=== PATIENT | female | born 1985 | race Caucasian/White ===

== ENCOUNTER 2020-03-09 01:09 | Outpatient (CLI) | payer OTHER, SELFPAY ==
[2020-03-09 18:21] LABS: SARS-CoV-2 RNA PCR Negative
== END 2020-03-09 01:10 | disposition home or self-care (01) ==
LOC: ANHCOVIDDT 01:09
PROVIDERS: Visit Provider Obstetrics & Gynecology
DX: Z20.828 Contact with and (suspected) exposure to other viral communicable diseases (principal); Z01.812 Encounter for preprocedural laboratory examination
CPT/HCPCS: 87635; C9803; U0003

== ENCOUNTER 2020-03-09 09:11 | Outpatient (CLI) | payer OTHER, SELFPAY ==
[2020-03-09 09:31] LABS: Basophils Percent Auto 0.2 % (0.2-1.2); Eosinophils Absolute Auto 0.1 K/mm3 (0-0.3); Eosinophils Percent Auto 1.1 % (0-4.4); Hemoglobin 12.7 g/dL (12.0-15.0); Lymphocytes Absolute Auto 1.94 K/mm3 (0.9-3.2); Lymphocytes Percent Auto 42.5 % (18.3-44.2); Mean Corpuscular HGB Conc 33.4 g/dl (32-36); Mean Corpuscular Hemoglobin 30.1 pg (26-34); Mean Platelet Volume 9.2 fl (7.4-10.4); Monocytes Absolute Auto 0.3 K/mm3 (0.1-0.6); Monocytes Percent Auto 5.5 % (2.6-8.5); Neutrophils Absolute Auto 2.3 K/mm3 (1.3-6.7); Neutrophils Percent Auto 50.7 % (45.5-73.1); Platelet Count Result 261 k/mm3 (150-375); Red Blood Count 4.22 M/mm3 (4.2-5.4); Red Cell Distribution Width 13.1 % (11.5-14.5); White Blood Count 4.6 K/mm3 (4.5-10.0)
== END 2020-03-09 09:12 | disposition home or self-care (01) ==
PROVIDERS: PCP Family Medicine; Visit Provider Obstetrics & Gynecology
DX: Z01.812 Encounter for preprocedural laboratory examination (principal); R10.2 Pelvic and perineal pain
CPT/HCPCS: 36415; 85025; 86850; 86900; 86901

== ENCOUNTER 2020-03-11 01:04 | Day surgery (SDC) | payer OTHER, SELFPAY ==
[2020-03-01 08:17] VITALS: BMI 23.4
--- NOTE | 2020-03-09 10:07 | PM.IMHP ---
H&P: HPI History of Present Illness Date/Time: 03/09/20 10:07 Chief complaint: enlarged uterus, pelvic pain Narrative: Marissa Graces is a 35 year old female 2 para 2 is admitted for robotic total vaginal direct me and bilateral salpingectomy. She complains of pain discomfort and has enlarged uterus. Her review of systems are otherwise negative. Risks and benefits were reviewed including but not exclusive of , aspiration pneumonia, bleeding, transfusion, perforation injury to bowel, bladder, ureters, or other internal organs with need for open laparotomy. She voiced good understanding. She had all questions answered. She asked to proceed Review of Systems Review of Systems: All systems reviewed & are unremarkable except as noted in HPI and below PMFSH Social History Social History Smoking status: Never smoker Substance use: never Spiritual care concerns: No Meds Home Medications and Allergies Home Medications Medication Instructions Recorded Confirmed Type baclofen 10 mg PO BID 03/01/20 03/01/20 History gabapentin 600 mg PO BID 03/01/20 03/01/20 History Allergies Allergy/AdvReac Type Severity Reaction Status Date / Time Sulfa (Sulfonamide Allergy Intermediate Hives / Verified 03/01/20 08:09 Antibiotics) Red Face Exam Const: General: no acute distress Eyes: General: appearance normal, both eyes and all related structures Neck: Neck: supple and no JVD Thyroid: thyroid normal Resp: Effort & Inspection: normal respiratory effort Auscultation: clear to auscultation bilaterally Cardio: Rate: regular rate Rhythm: regular rhythm GI: Inspection: non-distended GI Palp: Yes Soft to palpation, No Tenderness to palpation present (GI) and No Guarding due to palpation present (GI) Auscultation: normal bowel sounds : General: Yes bladder normal to inspection External Female Exam: normal external appearance Speculum Exam - Vagina: normal appearance of the vagina Speculum Exam - Cervix: normal appearance of the cervix Bimanual exam- vagina & uterus: enlarged Bimanual Exam- Adnexa, other: no masses Skin: General skin exam: no rashes or lesions noted Extrem: General: normal to inspection and no edema Psych: Mental Status: mental status grossly normal Affect: normal affect Assessment and Plan Additional Plan impression: Enlarged uterus a bland robotic total vaginal hysterectomy bilateral salpingectomy. We did discuss removing some redundant tissue in the vagina and a and we will discuss that at her visit
[2020-03-11] VITALS (15 sets, daily range): BP systolic 88–111; BP diastolic 56–80; PULSE 52–74; RESP 10–18; TEMP 36.3–36.6; O2SAT 95–100
--- NOTE | 2020-03-11 06:48 | WPDHPUPDATE1 ---
History and Physical Update Update Date/Time: 03/11/20 06:48 History and Physical has been reviewed, including an updated exam of the patient. There are NO changes in the patient's condition. Risks, benefits, and alternatives have been discussed and questions answered. Patient agrees to proceed with procedure.
--- NOTE | 2020-03-11 09:47 | WPDANESEPPF ---
Anes - Initial Pre Proc Eval Procedure: Operation Date: 03/11/20 11:30 Proposed Procedures p Robotic Assisted Total Vaginal Hysterectomy, Bilateral Salpingectomy - Zach Najera MD Date/Time: 03/11/20 09:47 Surgeon: Zach Najera MD Pre Op Diagnosis: enlarged uterus, pelvic pain Patient Data Age: 35 Gender: F Height: 4 ft 11 in Weight: 52.7 kg Allergies Allergy/AdvReac Type Severity Reaction Status Date / Time Sulfa (Sulfonamide Allergy Intermediate Hives / Verified 03/01/20 08:09 Antibiotics) Red Face Home Medications Medication Instructions Recorded Confirmed Type baclofen 10 mg PO BID 03/01/20 03/01/20 History gabapentin 600 mg PO BID 03/01/20 03/01/20 History hydrocodone-acetaminophen [[place]] 1 tablet PO Q4H PRN #30 tablet 03/11/20 Rx Patient hx anesthesia problems: other (pharyngel spasms) Family hx anesthesia problems: none PMFSH Past Medical History Medical History Asthma Social History Social History Smoking status: Never smoker Substance use: never Living arrangements: with family Spiritual care concerns: No Anes - Eval Final PreProcedure Day of Procedure 03/11/20 09:47 Patient weight: normal Heart: regular rate and rhythm Lungs: clear to auscultation Airway: Mallampati scale class II Neurological: alert and oriented Last oral intake: >/= 8 hours ASA classification: II Emergent: no Anesthetic plan: proceed Anesthesia type and monitoring: general ETT and standard monitoring Informed Consent: The patient's anesthetic plan and its attendant risks and benefits were discussed with the patient/family/POA. Questions were solicited and answers provided to the satisfaction of the patient/family/POA.
[2020-03-11] MEDS: ACETAMINOPHEN 500 MG TABLET 1000 MG PO (09:50)
[2020-03-11] MEDS: LACTATED RINGERS 1,000 ML 30 ML IV CONT ×2 (09:50→13:03)
[2020-03-11] MEDS: KETOROLAC 15 MG/ML VIAL (*BKC) IV PUSH (09:59)
--- NOTE | 2020-03-11 11:12 | WPDHPUPDATE1 ---
History and Physical Update Update Date/Time: 03/11/20 11:12 History and Physical has been reviewed, including an updated exam of the patient. There are NO changes in the patient's condition. Risks, benefits, and alternatives have been discussed and questions answered. Patient agrees to proceed with procedure. patient asks for removal of excess vaginal tissue
[2020-03-11] MEDS: ceFAZolin 2 GM/D5W 50 ML 2 GM/50 ML BAG IVPB (11:31)
--- NOTE | 2020-03-11 12:58 | PM.PROC ---
Procedure Note - Detailed Date of procedure: 03/11/20 Pre-op diagnosis: enlarged uterus, pelvic pain Surgeon: Zach Najera MD Postop diagnosis: Enlarged uterus/pelvic pain/excessive vaginal tissue Procedure: Robotic total vaginal hysterectomy with bilateral salpingectomy/removal of excess vaginal tissue Anesthesia: General endotracheal EBL: 50cc Findings: Second-degree prolapse with an enlarged uterus. Normal-appearing ovaries and tubes. Two small portions of excessive vaginal tissue. Comp Complications: None Description of procedure: The patient was prepped and draped in sterile fashion and placed in the dorsal lithotomy position. Under excellent general endotracheal anesthesia weighted speculum was placed in the posterior fornix of vagina. Anterior lip of the cervix grasped with single-tooth tenaculum and the uterus sounded to 9cm. Serial dilatation with fragmented dilators performed followed passes of the 8. JANELLE and the 3. Cold cup. Next 16 [place] catheter was placed. The remainder the instruments removed from the vagina. Gloves were changed. A supraumbilical incision made in the Veress needle passed in the abdomen. The abdomen was filled with CO2 gas [id number]. The 8mm trocar advanced in the abdomen. The downside visualized and no injury seen. The patient was placed in Trendelenburg and right left lateral quadrant incisions were made. 8mm trocars were advanced in the abdomen under direct visualization assuring no injury. A right upper quadrant incision made in the 10mm trocar advanced under direct visualization assuring no injury. The robot was docked. Attention was turned to the on awake counselor. The left round ligament was grasped, burned, cut. Anteriorly a bladder flap was formed by sharply dissecting this away and a caudal fashion to the opposite round ligament which was clamped, burned, cut. Next conserving the left ovary the left fallopian tube was dissected away from the uterus to be removed removed with the uterus. In like fashion the right fallopian tube was dissected away from the ovary to go with the specimen. The left utero-ovarian ligament was then skeletonized. Clamped, burned, cut and brought to the level of the previously cut round. The right utero-ovarian ligament was clamped, burned, cut and brought to the level of the right-sided previously burned round ligament. The ovaries appeared functional. The left cardinal and broad ligaments were serially skeletonized. These were brought down laterally by sharply dissecting using clamping burning and cutting until the uterine vessels could be seen on the left these were individually clamped, burned,. In like fashion the cardinal and broad ligaments on the right were serially skeletonized these were clamped, burned, cut and brought down lateral edge of the uterus until the uterine vessels could be seen the right. These were individually clamped, burned, cut. At that point excellent blanching of the uterus was seen. Colpotomy incision was made in the uterus and tubes and cervix removed through the vagina. Blood loss was [id number] the vagina was closed with continuous running 0V lock from lateral edge to lateral edge back to the midline. Irrigation undertaken to clear and the pedicles all appeared dry. The robot was undocked. The gas removed from the abdomen. The port sites removed and the incisions closed with 4 Monocryl and glue. All sponge, needle, instrument counts were correct. There were no immediate complications. Patient went to recovery in satisfactory condition
[2020-03-11] MEDS: fentaNYL CITRATE INJ (*CRX) 100 MCG/2 ML VIAL 25 MCG IV PUSH ×3 (13:38→14:05)
--- NOTE | 2020-03-11 14:24 | PC.NURSE ---
This patient, Marissa Garces, was received from PACU per bed to room 286. Patient/family oriented to unit policies and routines
[2020-03-11] MEDS: DEXTROSE 5%/LACTATED RINGERS 1,000 ML 125 ML IV CONT (14:35)
[2020-03-11] MEDS: MORPHINE SULFATE (*CRX) 4 MG/ML INJ IV PUSH (15:18)
[2020-03-11] MEDS: ONDANSETRON INJ 4 MG/2 ML VIAL IV PUSH (18:03)
[2020-03-11] MEDS: SIMETHICONE 80 MG TAB.CHEW PO ×2 (18:45→21:45)
[2020-03-11] MEDS: KETOROLAC 30 MG/ML VIAL (*BKC) IV PUSH (21:45)
[2020-03-11] MEDS: HYDROcodone/acetaminophen (*CRX) 5-325 MG TABLET 1 TAB PO (21:45)
[2020-03-12] MEDS: SIMETHICONE 80 MG TAB.CHEW PO ×3 (01:00→08:37)
[2020-03-12] MEDS: HYDROcodone/acetaminophen (*CRX) 5-325 MG TABLET 1 TAB PO ×3 (01:00→08:38)
[2020-03-12] MEDS: KETOROLAC 30 MG/ML VIAL (*BKC) IV PUSH (04:10)
[2020-03-12 04:30] VITALS: BP 97/66; PULSE 75; RESP 16; TEMP 36.7
[2020-03-12 05:20] LABS: Basophils Percent Auto 0.2 % (0.2-1.2); Hematocrit 35.7 % (37.0-47.0); Hemoglobin 12.1 g/dL (12.0-15.0); Immature Granulocyte Absolute 0.06 K/mm3 (0.00-0.031); Immature Granulocyte Percent A 0.5 % (0-0.5); Lymphocytes Absolute Auto 1.89 K/mm3 (0.9-3.2); Lymphocytes Percent Auto 16.7 % (18.3-44.2); Mean Corpuscular HGB Conc 33.9 g/dl (32-36); Mean Corpuscular Hemoglobin 30.1 pg (26-34); Mean Corpuscular Volume 88.8 fl (80-100); Mean Platelet Volume 9.5 fl (7.4-10.4); Monocytes Absolute Auto 0.8 K/mm3 (0.1-0.6); Monocytes Percent Auto 7.2 % (2.6-8.5); Neutrophils Absolute Auto 8.5 K/mm3 (1.3-6.7); Neutrophils Percent Auto 75.4 % (45.5-73.1); Platelet Count Result 235 k/mm3 (150-375); Red Blood Count 4.02 M/mm3 (4.2-5.4); Red Cell Distribution Width 12.8 % (11.5-14.5); White Blood Count 11.3 K/mm3 (4.5-10.0)
[2020-03-12 08:30] VITALS: BP 99/69; PULSE 67; RESP 16; TEMP 36.8; O2SAT 98
[2020-03-12] MEDS: DOCUSATE SODIUM 100 MG CAPSULE PO (08:38)
[2020-03-12] MEDS: ENOXAPARIN 40 MG/0.4 ML SYRINGE SUB-Q (08:38)
--- NOTE | 2020-03-12 10:23 | P.DS_ITS ---
DS: Admitting Diagnosis Admitting Diagnosis Admitting Diagnosis: enlarged uterus, pelvic pain DS: Summary Hospital Course Hospital Course: Marissa Garces was admitted after robotic assisted total laparoscopic hysterectomy and bilateral salpingectomy for enlarged uterus and pelvic pain. The above procedure was performed with no complications. She is doing well post op. She states her pain is well controlled with PO medications. She reports minimal bleeding. She is ambulating up to the chair. Her damian catheter was removed. She is tolerating PO without N/V. She reports passing flatus. Status at Discharge Overall status at discharge: patient is progressing back to baseline Time Spent with Patient Time attestation: Total time spent providing and/or coordinating discharge services: Time spent: Less than 30 minutes Exam Const: General: comfortable and no acute distress Limitations: no limitations Resp: Effort & Inspection: normal respiratory effort Auscultation: clear to auscultation bilaterally Cardio: Rate: regular rate Rhythm: regular rhythm GI: Inspection: non-distended GI Palp: Yes Soft to palpation, Yes Tenderness to palpation present (GI) (milder tenderness to deep palpation) and No Guarding due to palpation present (GI) Auscultation: normal bowel sounds Other: incisions C/D/I covered with dermabond Urinary Catheter: Urinary Catheter: urine clear Skin: General skin exam: normal color Extrem: General: normal to inspection Psych: Mental Status: mental status grossly normal Affect: normal affect DS: Data Data Completed and Pending Pending studies at discharge: Pending at discharge 03/11/20 12:28 Surgical [PTH] Routine Surgical [PTH] Routine Labs on day of discharge: Labs from last 24 hours 03/12/20 04:26 WBC 11.3 H RBC 4.02 L Hgb 12.1 Hct 35.7 L MCV 88.8 MCH 30.1 MCHC 33.9 RDW 12.8 Plt Count 235 MPV 9.5 Immature Gran % (Auto) 0.5 Neut % (Auto) 75.4 H Lymph % (Auto) 16.7 L [place] % (Auto) 7.2 Eos % (Auto) 0.0 Baso % (Auto) 0.2 Lymph # (Auto) 1.89 [place] # (Auto) 0.8 H Eos # (Auto) 0.0 Baso # (Auto) 0.0 Abs Immat Gran (auto) 0.06 H Absolute Neuts (auto) 8.5 H Absolute Nucleated RBC 0.0 Nucleated RBC % 0.0 Discharge Plan Discharge Patient Disposition: Home, Self-Care Patient Instructions: Laparoscopic Hysterectomy (DC) Stand Alone Forms: General Discharge Instructions Follow-up/Referrals: Zach Najera MD [Physician] - Discharge Medications: New hydrocodone-acetaminophen [[place]] 5-325 mg tablet 1 tablet PO Q4H PRN (Reason: pain) Qty: 30 RF: 0 ondansetron HCl [Zofran] 4 mg tablet 4 mg PO Q6H PRN (Reason: nausea and vomiting) Qty: 30 RF: 0 Continued gabapentin 600 mg tablet 600 mg PO BID RF: 0 baclofen 10 mg tablet 10 mg PO BID RF: 0
[2020-03-12] MEDS: IBUPROFEN 600 MG TABLET PO (12:22)
== END 2020-03-12 12:30 | disposition home or self-care (01) ==
LOC: ANHSURGERY 09:13 → ANHOB2 14:31
PROVIDERS: PCP Family Medicine; Visit Provider Obstetrics & Gynecology
PROC: (CPT 58552; principal; 2020-03-11 11:30)
DX: R10.2 Pelvic and perineal pain (principal); N85.2 Hypertrophy of uterus
CPT/HCPCS: 58552; S2900; 36415; 85025; 86850; 86900; 86901; 87635; 88305; 88307; 99199; A9270; C9803; J0330; J0690; J1100; J1650; J1885; J2250; J2270; J2405; J2704; J2710; J3010; J7030; J7120; J7121; U0003

== ENCOUNTER 2024-10-19 17:56 | Emergency (ER) | payer OTHER, SELFPAY ==
--- NOTE | 2024-10-19 17:58 | ED.EAR ---
HPI - Ear Problem General Chief complaint: Ear Stated complaint: ear pain Source: patient and RN notes reviewed Mode of arrival: ambulatory Limitations: no limitations History of Present Illness HPI Narrative: Patient is a 39-year-old female who presents to the [facility] with complaints of left ear pain that has been present since October 06. She states that her boss prescribed her a 5 day course of azithromycin. She states that she completed the course of antibiotics but continued to have ear pain. She started taking leftover amoxicillin she had at home when this fixed. She states that she continues to have ear pain. She denies ear drainage. Denies recent fevers. Denies cough or congestion. Related Data Home Medications ?Medication ?Instructions ?Recorded ?Confirmed ?Last Taken ?Type buspirone 15 mg tablet mg 10/19/24 Unknown History montelukast 10 mg tablet mg 10/19/24 Unknown History pregabalin 25 mg capsule mg 10/19/24 Unknown History Allergies Allergy/AdvReac Type Severity Reaction Status Date / Time Sulfa (Sulfonamide Allergy Intermediate Hives / Verified 10/19/24 18:04 Antibiotics) Red Face Review of Systems Review of Systems: CONSTITUTIONAL: Denies fever, chills, or sweats. EYES: Denies visual changes, redness, or discharge. ENT: Reports otalgia but denies sore throat CARDIOVASCULAR: Denies chest pain, palpitations, or edema. RESPIRATORY: Denies cough or dyspnea. GASTROINTESTINAL: Denies abdominal pain, nausea, vomiting, or diarrhea. GENITOURINARY: Denies dysuria or hematuria. SKIN: Denies rash or itching. MUSCULOSKELETAL: Denies back pain, joint pain, or myalgia. NEUROLOGIC: Denies headache, numbness, or weakness. Pertinent positives per HPI. PMFSH Past Medical History Medical History Asthma Social History Social History Smoking status: Never smoker Substance use: never Living arrangements: with family Spiritual care concerns: No Comments At the time of my signature, I reviewed and agree with the nursing past medical, surgical, social, and family history. There is no relevant family history pertinent to the patient complaint. Exam Narrative: GENERAL: This is a well-nourished, well-developed patient, in no apparent distress. HEAD: normocephalic, atraumatic. EYES: Sclera clear/white. Vision is grossly intact. EARS: External ears normal, auditory canals clear and without drainage. Right TM normal without perforation. Left TM opaque. Hearing grossly intact. NOSE: External nose normal with no obvious nasal discharge, nares without redness, no rhinorrhea. THROAT: Mucous membranes moist, posterior pharynx clear. NECK: Neck supple, non-tender without lymphadenopathy, masses or thyromegaly. CARDIOVASCULAR: Regular rate and rhythm without murmurs, gallops, or rubs. RESPIRATORY: Clear to auscultation. Breath sounds equal bilaterally. No wheezes, rales, or rhonchi. GASTROINTESTINAL: Abdomen soft, non-tender, nondistended. Bowel sounds are active. No hepato-splenomegaly, or palpable masses. No guarding. SKIN: warm, intact with no suspicious lesions or rash, good texture and turgor. NEURO: awake, alert, and oriented to person, place and time. There were no obvious focal neurologic abnormalities. Course Course Level of Care: Express Care Visit Vital Signs Vital signs: Vital Signs Temperature 98 F 10/19/24 18:03 Pulse Rate 77 10/19/24 18:03 Respiratory Rate 18 10/19/24 18:03 Blood Pressure 134/85 10/19/24 18:03 Pulse Oximetry 100 10/19/24 18:03 Oxygen Delivery Room Air 10/19/24 18:03 Temperature 98 F 10/19/24 18:03 Pulse Rate 77 10/19/24 18:03 Respiratory Rate 18 10/19/24 18:03 Blood Pressure 134/85 10/19/24 18:03 Pulse Oximetry 100 10/19/24 18:03 Oxygen Delivery Room Air 10/19/24 18:03 Reviewed Medical Decision Making MDM Narrative Medical decision making narrative: patient has failed therapy with azithromycin and amoxicillin. Will prescribe dual therapy with first-line treatment of Augmentin along with Ciprodex drops. Take antibiotics as directed. May given ibuprofen and/or Tylenol as needed for pain and/or fever. Follow up with primary care provider in 7-10 days to have ear rechecked. -Ear drops as directed for 7-10 days until the pain and swelling are gone. -When administer drug into the affected ear; make sure to ly down with the affected ear facing upward, message the ear canal to help the drops reach the medial end of the canal, then remain in that position for at least 5 mintues. -Avoid using cotton tipped applicator for ears cleaning -Avoid exposing swimming or exposing the affected ear to water during the treatment period Take or alternate tylenol or ibuprofen every 4 - 6 hours if needed for pain. Follow up with primary care provider if condition is not improving in 7 days or sooner if there is new concern. Differential Diagnosis Differential Diagnosis: otitis externa, otitis media, cerumen impaction Vital Signs Vital Signs: Vital Signs Temperature 98 F 10/19/24 18:03 Pulse Rate 77 10/19/24 18:03 Respiratory Rate 18 10/19/24 18:03 Blood Pressure 134/85 10/19/24 18:03 Pulse Oximetry 100 10/19/24 18:03 Oxygen Delivery Room Air 10/19/24 18:03 Temperature 98 F 10/19/24 18:03 Pulse Rate 77 10/19/24 18:03 Respiratory Rate 18 10/19/24 18:03 Blood Pressure 134/85 10/19/24 18:03 Pulse Oximetry 100 10/19/24 18:03 Oxygen Delivery Room Air 10/19/24 18:03 Critical Care Time Critical Care Time Critical Care Time: No Discharge Plan Discharge Clinical Impression: Acute left otitis media Patient Disposition: Home Condition: Stable Instructions: Antibiotic Form, Ear Infection (ED) Additional Instructions: Take antibiotics as directed. May given ibuprofen and/or Tylenol as needed for pain and/or fever. Follow up with primary care provider in 7-10 days to have ear rechecked. -Ear drops as directed for 7-10 days until the pain and swelling are gone. -When administer drug into the affected ear; make sure to ly down with the affected ear facing upward, message the ear canal to help the drops reach the medial end of the canal, then remain in that position for at least 5 mintues. -Avoid using cotton tipped applicator for ears cleaning -Avoid exposing swimming or exposing the affected ear to water during the treatment period Take or alternate tylenol or ibuprofen every 4 - 6 hours if needed for pain. Follow up with primary care provider if condition is not improving in 7 days or sooner if there is new concern. Patient Language: Sinhala Prescriptions: New amoxicillin-pot clavulanate 875-125 mg tablet 1 tablet PO Q12H 10 Days Qty: 20 0RF ciprofloxacin-dexamethasone 0.3-0.1 % drops,suspension 4 drp LEFT EAR Q12H 7 Days Qty: 7.5 0RF No Action montelukast 10 mg tablet buspirone 15 mg tablet pregabalin 25 mg capsule Follow-up/Referrals: Linda,Wade Sinclair MD [Primary Care Provider] - Time of Disposition: 18:15
--- OUTSIDE RECORDS SUMMARY | 2024-10-19 17:59 | XMS_ITS | Encounter Summary ---
Author Organization [facility] Address [address] [place] [address] Phone Care Team Providers Care Wood Lather Name Role Phone Wade Mckeon MD Primary Care Provider [phone] Zohreh Mo NURSING SECRETARY Unavailable [phone] Cherri Hair NURSING SECRETARY Unavailable [phone] Encounter Details Date Type Department Care Team (Late st Contact Info) Description 10/21/2023 E-Visit [facility] Neuro Muscle [address] [facility] Advanced Medicine 6th [place] [address] [place] [address] Aaron Garcia MD [address] [place] [address] Upcoming appointment Social History Tobacco Use Types Packs/Day Years Used Date Smoking Tobacco: Never Smokeless Tobacco: Never Alcohol Use Standard Drinks/Week Comments Yes 0 (1 standard drink = 0.6 oz pur e alcohol) soc ial use only AUDIT-C Answer Date Recorded Q1: How often do you have a drink containing alc ohol? 2-4 times a month 09/23/2020 Average Number of Drinks Not on file 021 Frequency of Binge Drinking Not on file 09/06 Comments No Sex and Gender Information Value Date Recorded Sex Assigned at Not on file Legal Sex Female 9:16 AM CDT Gender Identity Not on file Sexual Orientation Not on file documented as of this encounter Plan of Treatment Not on file documented as of this encounter Visit Diagnoses Not on filedocumented in this encounter Care Teams Wood Lather Relationship Specialty [place] [id number] [address] PCP - General 07/17/16 Zohreh Mo, EDUARD [address] [id number] Speech Language Pathologist Speech Therapy 10/16/17 Cherri Hair, EDUARD [address] [id number] Referring Physician Speech Therapy 02/26/18 documented as of this encounter
--- OUTSIDE RECORDS SUMMARY | 2024-10-19 17:59 | XMS_ITS | Referral Summary ---
Author Organization [facility] al Address [address] [place] [address] Care Team Providers Care Radiological Technician Name Role Phone Wade Mckeon MD Primary Care Provider +- [phone] Zohreh Mo DIGITAL MARKETING STRATEGIST Unavailable Cherri Hair DIGITAL MARKETING STRATEGIST Unavailable +1- [phone] Encounters Date Type Department Care Team Description 10/16/2024 2:50 PM CDT Clinical Support [facility] Allergy and Immunology [address] [place] [address] [place] [phone] Seasonal allergic rhinitis due to pollen; Allergic rhinitis due to animal dander; Allergic rhinitis due to dust mite 09/25/2024 1:50 PM CDT Clinical Support [facility] Allergy and Immunology [address] [place] [address] [place] [phone] Seasonal allergic rhinitis due to pollen; Allergic rhinitis due to animal dander; Allergic rhinitis due to dust mite 09/18/2024 9:50 AM CDT Clinical Support [facility] Allergy and Immunology [address] [place] [address] [place] [phone] Seasonal allergic rhinitis due to pollen; Allergic rhinitis due to animal dander; Allergic rhinitis due to dust mite 07/24/2024 9:20 AM CDT Clinical Support [facility] Allergy and Immunology [address] [place] [address] [place] [phone] Seasonal allergic rhinitis due to pollen; Allergic rhinitis due to animal dander; Allergic rhinitis due to dust mite from Last 3 Months Allergies Active Allergy Reactions Criticality Noted Date Comments Sulfa (Sulfonamide Antibiotics) Rash Medium Medications EPINEPHrine 0.3 mg/0.3 mL syringe 05/23/19 22 Active Advair HFA 230-21 mcg/actuation inhaler Inhale 2 puffs 2 (two) times a day Rinse mouth with water after use. Do not swallow. 1 each 04/04/20 23 Active budesonide-for moteroL (SYMBICORT) 160-4.5 mcg/actuation inhaler Inhale 2 puffs 2 (two) times a day Rinse mouth with water after use. Do not swallow. 1 each 05/08/19 24 Active cetirizine (ZyrTEC) 10 mg tablet Take 1 tablet (10 mg total) by mouth daily for 1 dose 1 tablet 06/14/19 24 Active cetirizine (ZyrTEC) 10 mg tablet Take 1 tablet (10 mg total) by mouth daily for 1 day 1 tablet 06/28/19 24 Active cetirizine (ZyrTEC) 10 mg tablet Take 1 tablet (10 mg total) by mouth daily for 1 dose 1 tablet 07/05/19 24 Active cetirizine (ZyrTEC) 10 mg tablet Take 1 tablet (10 mg total) by mouth daily for 1 dose 1 tablet 07/26/19 24 Active cetirizine (ZyrTEC) 10 mg tablet Take 1 tablet (10 mg total) by mouth daily for 1 dose 1 tablet 08/23/19 24 Active cetirizine (ZyrTEC) 10 mg tablet Take 1 tablet (10 mg total) by mouth daily for 1 dose 1 tablet 08/30/19 24 Active fexofenadine (SKYE) 180 mg tablet Take 1 tablet (180 mg total) by mouth once for 1 dose 5 tablet 09/27/19 24 Active cetirizine (ZyrTEC) 10 mg tablet Take 1 tablet (10 mg total) by mouth daily for 1 dose 1 tablet 10/25/19 24 Active busPIRone (BUSPAR) 15 mg tablet TAKE 1 TABLET (15 MG TOTAL) BY MOUTH 2 (TWO) TIMES A DAY 60 tablet 12/16/19 24 Active omeprazole (PriLOSEC) 20 mg capsule TAKE 1 CAPSULE (20 MG TOTAL) BY MOUTH DAILY 30 capsule 12/16/19 24 025 Active cetirizine (ZyrTEC) 10 mg tablet Take 1 tablet (10 mg total) by mouth daily for 1 dose 1 tablet 12/13/19 24 Active busPIRone (BUSPAR) 15 mg tablet Take 1 tablet (15 mg total) by mouth 2 (two) times a day 60 tablet 12/16/19 24 025 Active omeprazole (PriLOSEC) 20 mg capsule Take 1 capsule (20 mg total) by mouth daily 30 capsule 12/16/19 24 025 Active nitrofurantoin (MACRODANTIN) 100 mg capsule 01/27/20 24 Active phenazopyridin e (PYRIDIUM) 100 mg tablet TAKE 1 TABLET BY MOUTH 3 TIMES DAILY NEEDED FOR PAIN. 12/30/19 24 Active predniSONE (DELTASONE) 20 mg tablet 12/18/19 24 Active fluticasone propionate (FLONASE) 50 mcg/actuation nasal sprayIndicatio ns:Allergic Rhinitis Administer 2 sprays into each nostril daily 1 each 02/25/20 24 Active gabapentin (NEURONTIN) 600 mg tablet Take 0.5 tablets (300 mg total) by mouth 2 (two) times a day for 14 days, THEN 0.5 tablets (300 mg total) nightly for 14 days. 21 tablet 02/27/20 24 Active pregabalin (LYRICA) 25 mg capsuleIndicat ions:Hereditar y sensory neuropathy type 2 Take 2 capsules (50 mg total) by mouth 2 (two) times a day 120 capsule 5 04/23/19 25 Active montelukast (SINGULAIR) 10 mg tablet Take 1 tablet (10 mg total) by mouth nightly 30 tablet 1 10/20/19 25 026 Active montelukast (SINGULAIR) 10 mg tablet TAKE 1 TABLET (10 MG TOTAL) BY MOUTH NIGHTLY 30 tablet 5 04/08/19 25 025 Discontinued Hospital, Clinic, or Other Facility Administered Medication Ordered Dose Route Frequency Start Date End Date Status cetirizine (ZyrTEC) tablet 10 mgIndications:Seasonal allergic rhinitis due to pollen,Allergic rhinitis due to animal dander,Allergic rhinitis due to dust mite 10 mg oral Once 09/25/2024 09/25/2024 Ended cetirizine (ZyrTEC) tablet 10 mgIndications:Seasonal allergic rhinitis due to pollen,Allergic rhinitis due to animal dander,Allergic rhinitis due to dust mite 10 mg oral Once 10/16/2024 10/16/2024 Ended Active Problems Problem Noted Date Diagnosed Date RFC1 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 GI workup was put on hold due to COVID. I will reach back out to Dr. Adamson to restart workup. Acid reflux 05/14/2019 Assessment & Plan (05/14/2019 8:53 AM WRAPPER STEMMER OPERATOR): Given that the patient has symptoms consistent with reflux, but has previously failed an empiric course of PPI, I would like to do high-resolution manometry with pH impedance testing to further identify whether or not reflux could be a cause of her chronic cough. Subjective tinnitus, bilateral 09/25/2018 Tonsil stone 09/10/2018 Assessment & Plan (09/10/2018 11:46 AM CDT): Given that the patient is having to remove tonsil stones multiple times per day, also associated with halitosis, and a history of 2-3 episodes of strep tonsillitis annually, I have recommended tonsillectomy. The procedure was discussed in detail with the patient. The risks and benefits, including but not limited to, severe pain, bleeding (potentially life-threatening), dehydration, nausea, the need for a soft diet for 2 weeks, the need to be off work or school for 1 to 2 weeks were discussed. The patient agrees and would like to proceed. Bilateral hearing loss 09/10/2018 Assessment & Plan (09/10/2018 11:52 AM CDT): Given the prior history of tubes due to retractions, decreased hearing, and aural fullness, I'd like to get an updated audiogram with tympanometry to determine if she needs another set of tubes. Viral upper respiratory tract infection 02/13/20 18 Assessment & Plan (02/12/2018 3:30 PM WRAPPER STEMMER OPERATOR): Because the patient is dealing with symptoms of an active upper respiratory tract infection, I have recommended not proceeding with Botox injection today. I have seen to many patients with the Botox does not work in the setting of acute infection. I have recommended a Medrol Dosepak in order to improve her symptoms. She will follow up with me over the phone next week. Neuropathy 07/30/2017 Laryngeal spasm 11/22/2016 Assessment & Plan (09/10/2018 11:52 AM CDT): Botox provided today for history of spasm and cough. Vocal cord dysfunction 11/22/2016 Medication overuse headache 07/30/2016 Chronic infection of sinus 06/25/2016 Deviated nasal septum 06/25/2016 Hypertrophy of nasal turbinates 01/17/2016 Chronic cough 12/07/2015 Assessment & Plan (09/30/2019 11:12 AM CDT): The cough is improved with Baclofen in its intensity, but is still present. I have discussed moving to TID dosing of 5 mg to aim for better control. Patient will let us know how her symptoms improve. Assessment & Plan (05/14/2019 8:54 AM WRAPPER STEMMER OPERATOR): There is still no clear etiology of the patient's cough, and it is likely multifactorial to include asthma, possible laryngeal hypersensitivity, and the possibility of reflux disease. Shortness of breath Social History Tobacco Use Types Packs/Day Years Used Date Smoking Tobacco: Never Smokeless Tobacco: Never Tobacco Cessation:Counseling Given: Not Answered Alcohol Use Standard Drinks/Week Comments Yes 0 [...] on file Sexual Orientation Not on file Last Filed Vital Signs Vital Sign Reading Time Taken Comments Blood Pressure 111/75 02/27/2024 11:06 AM WRAPPER STEMMER OPERATOR Pulse 70 02/27/2024 11:06 AM WRAPPER STEMMER OPERATOR Temperature 36.3 C (97.3 F) 02/25/2024 12:42 PM WRAPPER STEMMER OPERATOR Respiratory Rate 18 02/25/2024 12:42 PM WRAPPER STEMMER OPERATOR Oxygen Saturation 98% 02/25/2024 12:42 PM WRAPPER STEMMER OPERATOR Inhaled Oxygen Concentration - - Weight 57.6 kg (127 lb) 02/27/2024 11:06 AM WRAPPER STEMMER OPERATOR Height 149.9 cm (4' 11) 02/27/2024 11:06 AM WRAPPER STEMMER OPERATOR Body Mass Index 25.65 02/27/2024 11:06 AM WRAPPER STEMMER OPERATOR Plan of Treatment Not on file Insurance [facility] AET [facility] CMR [facility] Advance Directives For more information, please contact: [phone] * Full Code (Latest Code Status on File) Date Activated Date Inactivated Comments 11/26/2019 9:55 AM 11/26/2019 4:14 PM Care Teams Radiological Technician Relationship Specialty [place] [address] [address] [address] PCP - General 07/17/16 Zohreh Mo, EDUARD [address] [address] Speech Language Pathologist Speech Therapy 10/16/17 Cherri Hair, EDUARD [address] [address] Referring Physician Speech Therapy 02/26/18
--- OUTSIDE RECORDS SUMMARY | 2024-10-19 17:59 | XMS_ITS | Clinical Summary ---
Author Organization [facility] al Address [address] [place] [address] Care Team Providers Care Steel Tester Name Role Phone Wade Mckeon MD Primary Care Provider [phone]- [phone] Zohreh Mo LEAF BLENDER Unavailable Cherri Hair LEAF BLENDER Unavailable +1- [phone] Allergies Active Allergy Reactions Criticality Noted Date [...] 2 (two) times a day 60 tablet 11 12/16/19 24 025 Active omeprazole (PriLOSEC) 20 mg capsule Take 1 capsule (20 mg total) by mouth daily 30 capsule 11 12/16/19 24 025 Active nitrofurantoin (MACRODANTIN) 100 [...] (10/27/2019): Added automatically from request for surgery [id number] Cough 10/27/2019 Overview (10/27/2019): Added automatically from request for surgery [id number] Esophageal dysfunction 07/09/2019 Assessment & Plan (09/30/2019 11:13 AM CDT): Abnormal manometry showing lack of contraction reserve. GI workup was put on hold due to COVID. I will reach back out to Dr. Adamson to restart workup. Acid reflux 05/14/2019 Assessment & Plan (05/14/2019 8:53 AM DESIGN INTERN): Given that the patient has symptoms consistent [...] 18 Assessment & Plan (02/12/2018 3:30 PM DESIGN INTERN): Because the patient is dealing with symptoms [...] improve. Assessment & Plan (05/14/2019 8:54 AM DESIGN INTERN): There is still no clear etiology of the patient's cough, and it is likely multifactorial to include asthma, possible laryngeal hypersensitivity, and the possibility of reflux disease. Shortness of breath Encounters Date Type Department Care Team Description 10/16/2024 2:50 PM CDT Clinical Support [facility] Allergy and Immunology [address] [place] [address] [place] [phone] Seasonal allergic rhinitis due to pollen; Allergic rhinitis due to animal dander; Allergic rhinitis due to dust mite 09/25/2024 1:50 PM CDT Clinical Support [facility] Allergy and Immunology [address] [place] [address] [place] [phone] Seasonal allergic rhinitis due to pollen; Allergic rhinitis due to animal dander; Allergic rhinitis due to dust mite 09/18/2024 9:50 AM CDT Clinical Support [facility] Allergy and Immunology [address] [place] [phone] Seasonal allergic rhinitis due to pollen; Allergic rhinitis due to animal dander; Allergic rhinitis due to dust mite 07/24/2024 9:20 AM CDT Clinical Support [facility] Allergy and Immunology [address] [place] [address] [place] [phone] Seasonal allergic rhinitis due to pollen; Allergic rhinitis due to animal dander; Allergic rhinitis due to dust mite from Last 3 Months Surgical History Surgery Date Site/Laterality Comments BUNIONECTOMY Medical History Medical History Date Comments Allergic rhinitis Anxiety Chronic cough Migraines Family History Medical History Relation Name Comments No Known Problems Daughter Neuropathy Father s/p final fusio n Cancer Mother Neuropathy Mother No Known Problems Sister Brandy Asthma Son Leukemia Son Neurodegenerative disease Neg Hx Neuromuscular disorder Neg Hx Relation Name Status Comments Daughter Alive Father Alive Mother Alive Sister Brandy Alive Son Alive Social History Tobacco Use Types Packs/Day Years [...] on file Sexual Orientation Not on file Obstetrics History Last Filed Vital Signs Vital Sign Reading Time Taken Comments Blood Pressure 111/75 02/27/2024 11:06 AM DESIGN INTERN Pulse 70 02/27/2024 11:06 AM DESIGN INTERN Temperature 36.3 C (97.3 F) 02/25/2024 12:42 PM DESIGN INTERN Respiratory Rate 18 02/25/2024 12:42 PM DESIGN INTERN Oxygen Saturation 98% 02/25/2024 12:42 PM DESIGN INTERN Inhaled Oxygen Concentration - - Weight 57.6 kg (127 lb) 02/27/2024 11:06 AM DESIGN INTERN Height 149.9 cm (4' 11) 02/27/2024 11:06 AM DESIGN INTERN Body Mass Index 25.65 02/27/2024 11:06 AM DESIGN INTERN Plan of Treatment Health Maintenance Due Date Last Done Comments Cervical Cancer Screening 1985 Depression Screening 1985 Hepatitis C Screening 1985 DTaP/Tdap/Td Vaccine (1 - Tdap) 02/18/1996 Varicella Vaccines (1 of 2 - 13+ 2-dose series) 1998 Hepatitis B Screening 2003 Regular Well Visit/Exam 18-64 2003 Pneumococcal vaccine <65 (2 of 2 - PCV) 04/20/2016 04/20/2015 Influenza Vaccine (#1) 2024 , 01/05/2020, 02/26/2019, Additional history exists HPV Vaccines Aged Out No longer eligi ble based on patient's age to complete this topic Insurance [facility] HMO/PPO Address: [address] [address] Advance Directives For more information, please contact: [phone] * Full Code (Latest Code Status on File) Date Activated Date Inactivated Comments 11/26/2019 9:55 AM 11/26/2019 4:14 PM Care Teams Steel Tester Relationship Specialty [place] [address] [facility] [address] [place] [address] PCP - General 07/17/16 Zohreh Mo, LEAF BLENDER [address] [facility] [address] [place] [address] Speech Language Pathologist Speech Therapy 10/16/17 Cherri Hair, LEAF BLENDER [address] [facility] [address] [place] [address] Referring Physician Speech Therapy 02/26/18
--- OUTSIDE RECORDS SUMMARY | 2024-10-19 17:59 | XMS_ITS | Encounter Summary ---
Author Organization [facility] Address [address] [place] [address] Phone Care Team Providers Care Hand Sander Name Role Phone Wade Mckeon MD Primary Care Provider +- [phone] Zohreh Mo FIBER OPTIC SPLICER Unavailable [phone] Cherri Hair FIBER OPTIC SPLICER Unavailable + [phone] Encounter Details Date Type Department Care Team (Late st Contact Info) Description 10/27/2019 Telephone [facility] Gastroenterology [facility] 8th [place] [address] [place] [address] Felicia Rodriguez CMA Social History Tobacco Use Types Packs/Day Years Used Date Smoking Tobacco: Never Smokeless Tobacco: Never Alcohol Use Standard Drinks/Week Comments Yes 0 (1 standard drink = 0.6 oz pur e alcohol) soc ial use only Comments Unknown Sex and Gender Information Value Date Recorded Sex Assigned at Not on file Legal Sex Female 9:16 AM CDT Gender Identity Not on file Sexual Orientation Not on file documented as of this encounter Plan of Treatment Not on file documented as of this encounter Visit Diagnoses Not on filedocumented in this encounter Care Teams Hand Sander Relationship Specialty [place] [address] [address] PCP - General 07/17/16 Zohreh Mo, FIBER OPTIC SPLICER [address] [phone] Speech Language Pathologist Speech Therapy 10/16/17 Cherri Hair, EDUARD [address] [id number] Referring Physician Speech Therapy 02/26/18 documented as of this encounter
--- OUTSIDE RECORDS SUMMARY | 2024-10-19 17:59 | XMS_ITS | Clinical Summary ---
Author Organization [facility] Address [address] [place] [address] Care Team Providers Care Plastic Printer Name Role Phone Wade Mckeon MD Primary Care Provider [phone] Allergies Active Allergy Reactions Criticality Noted Date Comments Sulfa Antibiotics Rash,Hives,Unknown Low 07/24/2013 Medications EPINEPHrine 0.3 MG/0.3ML Solution Prefilled SyringeIndicat ions:Laryngeal spasm Inject 0.3ml into the muscle as needed for anaphylactic reaction 1 each 2 2 Active busPIRone 15 MG tabletIndicati ons:Anxiety Take 1 tablet (15 mg total) by mouth 2 (two) times a day. 180 tablet 2 Active fluticasone propionate (FLONASE) 50 MCG/ACT nasal sprayIndicatio ns:Non-recurre nt acute serous otitis media of both ears 1 spray by Nasal route daily. 16 g 2 Active omeprazole (PRILOSEC) 20 MG capsule Take 1 capsule (20 mg total) by mouth daily. 4 025 Active montelukast (SINGULAIR) 10 MG tablet 4 Active pregabalin (LYRICA) 25 MG capsule Take 2 capsules (50 mg total) by mouth 2 (two) times daily. 5 Active methylPREDNISo winifred GIUSEPPE, (MEDROL DOSEPAK) 4 MG tablet Take 1 tablet (4 mg total) by mouth see administration instructions. 6 TABLETS ON DAY ONE, 5 TABLETS DAY TWO, 4 TABLETS DAY THREE, 3 TABLETS DAY FOUR, 2 TABLETS DAY FIVE, AND 1 TABLET DAY SIX 1 each 5 Active Active Problems Problem Noted Date Diagnosed Date Esophageal dysmotility 05/14/2019 Overview (12/18/2023): Last Assessment & Plan: Given that the patient has symptoms consistent with reflux, but has previously failed an empiric course of PPI, I would like to do high-resolution manometry with pH impedance testing to further identify whether or not reflux could be a cause of her chronic cough. Last Assessment & Plan: Abnormal manometry showing lack of contraction reserve. GI workup was put on hold due to COVID. I will reach back out to Dr. Adamosn to restart workup. Added automatically from request for surgery [id number] Subjective tinnitus, bilateral 09/25/2018 Bilateral hearing loss 09/10/2018 Overview (12/18/2023): Last Assessment & Plan: Given the prior history of tubes due to retractions, decreased hearing, and aural fullness, I'd like to get an updated audiogram with tympanometry to determine if she needs another set of tubes. Neuropathy 07/30/2017 Laryngeal spasm 11/22/2016 Overview (12/18/2023): Last Assessment & Plan: Botox provided today for history of spasm and cough. Medication overuse headache 07/30/2016 Deviated nasal septum 06/25/2016 Fever 06/18/2016 Chronic infection of sinus 06/18/2016 Hypertrophy of nasal turbinates 01/17/2016 Cough 12/07/2015 Overview (12/18/2023): Last Assessment & Plan: The cough is improved with Baclofen in its intensity, but is still present. I have discussed moving to TID dosing of 5 mg to aim for better control. Patient will let us know how her symptoms improve. Added automatically from request for surgery [id number] Adnexal cyst 06/22/2015 Resolved Problems Problem Noted Date Diagnosed Date Resolved Date Encounter for preventive health examination 05/01/2012 12/18/2019 Immunizations Immunization Administration Dates Next Due Afluria 36 MONTHS+ (Prefilled Syringe IIV4) 02/07 Hib Vaccine, Prp-Omp 04/20/2015 Influenza (Generic) 2016 Influenza Adult (Generic) 02/04/2021 MODERNA COVID-19 (12+) MRNA, LNP-S, PF, 100 MCG/ 0.5 ML DOSE 05/04/2020,04/06/2020 Pneumococcal (Pneumovax 23) 04/20/2015 Family History Medical History Relation Comments None Father Breast Cancer Mother Cancer Mother Lung Cancer Mother Cancer Son Leukemia Relation Status Comments Father Alive Mother Alive Son Alive Social History Tobacco Use Types Packs/Day Years Used Date Smoking Tobacco: Never Smokeless Tobacco: Never Tobacco Cessation:Counseling Given: Not Answered Alcohol Use Standard Drinks/Week Comments Yes 0 (1 standard drink = 0.6 oz pur e alcohol) very rarely PHQ-2 Answer Date Recorded PHQ-2 Score - If the patient scores above 3, please move on to questions 3-9 0 02/27/2022 Education Answer Date Recorded What is the highest level of school you have completed or the highest degree you have received? Associate degree: occupational, technical, or vocational program 08/04/2018 Comments No Sex and Gender Information Value Date Recorded Sex Assigned at Female 08/04/2018 7:11 AM CDT Legal Sex Female 4:40 PM CDT Gender Identity Female 08/04/2018 7:11 AM CDT Sexual Orientation Straight 08/04/2018 7: 11 AM CDT Last Filed Vital Signs Vital Sign Reading Time Taken Comments Blood Pressure 123/74 05/07/2024 10:36 AM CURRICULUM FACILITATOR Pulse 91 05/07/2024 10:36 AM CURRICULUM FACILITATOR Temperature 37.2 C (98.9 F) 05/07/2024 10:36 AM CURRICULUM FACILITATOR Respiratory Rate 16 05/07/2024 10:36 AM CURRICULUM FACILITATOR Oxygen Saturation 100% 05/07/2024 10:36 AM CURRICULUM FACILITATOR Inhaled Oxygen Concentration - - Weight 52.2 kg (115 lb) 05/07/2024 10:36 AM CURRICULUM FACILITATOR Height 152.4 cm (5') 05/07/2024 10:36 AM CURRICULUM FACILITATOR Body Mass Index 22.46 05/07/2024 10:36 AM CURRICULUM FACILITATOR Plan of Treatment Health Maintenance Due Date Last Done Comments Annual Physical 02/18/1988 Hepatitis C 2003 DTaP, Tdap and Td Vaccines ( 1 - Tdap) 02/18/2004 Hepatitis B Vaccines (1 of 3 - 19+ 3-dose series) 02/18/2004 COVID-19 Vaccine (3 - 2023-2 5 season) 2023 05/04/2020, 04/06/2020 PHQ-2 (Physician [place]) 04/08/2024 Pneumococcal Vaccine: Pediatrics (0 to 5 Years) and At-Risk Patients (6 to 49 Years) Aged Out 04/20/2015 No longer eligible b ased on patient's age to complete this topic HPV Vaccines Aged Out No longer eligi ble based on patient's age to complete this topic Meningococcal B Vaccine Aged Out No l onger eligible based on patient's age to complete this topic Meningococcal Vaccine Aged Out No lashae beth eligible based on patient's age to complete this topic RSV Immunizations Under 20 Months Aged Out No longer eligible b ased on patient's age to complete this topic Additional Health Concerns Infection Onset Date Last 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
[2024-10-19 18:03] VITALS: BP 134/85; PULSE 77; RESP 18; TEMP 36.6; O2SAT 100
== END 2024-10-19 18:17 | disposition home or self-care (01) ==
PROVIDERS: Emergency Provider Nurse Practitioner; PCP Family Medicine
DX: H66.92 Otitis media, unspecified, left ear (principal); J45.909 Unspecified asthma, uncomplicated
CPT/HCPCS: 99213; G0463